=== PATIENT | male | born 1995 | race Asian ===

== ENCOUNTER 2017-02-20 04:06 | Emergency (ER) | payer BC, OTHER ==
[2017-02-20 04:37] VITALS: TEMP 98.2; BMI 24.7
--- NOTE | 2017-02-20 04:39 | PDOC ---
History of Present Illness - General History Source: Patient Exam Limitations: No Limitations - History of Present Illness Initial Comments: 02/20/17 04:46 The patient is a 21 year old male with no significant PMH who presents with vomiting and diarrhea beginning approximately 7 hours ago. The patient also reports crampy abdominal pain. He reports being unable to tolerate fluids since 10PM last night. He reports his last meal was at 2PM yesterday. The patient is vomiting upon presentation. The patient denies chest pain, shortness of breath, headache and dizziness. Denies fever, chills, and constipation. Denies dysuria, frequency, urgency and hematuria. Allergies: NKA Past surgical history: None reported. Social history: No reported cigarette, alcohol, or drug use. PCP: Dr. Dennis Short <Rohit Harrington - Last Filed: 02/20/17 04:46> - General History Source: Patient <Juan Ibrahim - Last Filed: 02/20/17 19:33> - General Chief Complaint: Nausea/Vomiting Stated Complaint: VOMITING,DIARRHEA Time Seen by Provider: 02/20/17 04:36 Past History <Rohit Harrington - Last Filed: 02/20/17 04:46> - Past Medical History COPD: No Thyroid Disease: No - Immunization History Immunization Up to Date: Yes - Suicide/Smoking/Psychosocial Hx Smoking History: Never smoked Have you smoked in the past 12 months: No Information on smoking cessation initiated: No Hx Alcohol Use: No Drug/Substance Use Hx: No Substance Use Type: None <Juan Ibrahim - Last Filed: 02/20/17 19:33> - Past Medical History Allergies/Adverse Reactions: Allergies Allergy/AdvReac Type Severity Reaction Status Date / Time No Known Allergies Allergy Verified 02/20/17 04:29 Home Medications: Ambulatory Orders NK [No Known Home Medication] 02/20/17 Ondansetron [Zofran -] 4 mg PO TID PRN #14 tablet 02/20/17 Review of Systems - Review of Systems Able to Perform ROS?: Yes Comments:: 02/20/17 04:46 CONSTITUTIONAL: Absent: fever, chills, diaphoresis, generalized weakness, malaise, loss of appetite HEENT: Absent: rhinorrhea, nasal congestion, throat pain, throat swelling, difficulty swallowing, mouth swelling, ear pain, eye pain, visual Changes CARDIOVASCULAR: Absent: chest pain, syncope, palpitations, irregular heart rate, lightheadedness , peripheral edema RESPIRATORY: Absent: cough, shortness of breath, dyspnea with exertion, orthopnea, wheezing, stridor, hemoptysis GASTROINTESTINAL: (+) Nausea. (+) Vomiting. (+) Diarrhea. (+) Crampy abdominal pain. Absent: abdominal distension, constipation, melena, hematochezia GENITOURINARY: Absent: dysuria, frequency, urgency, hesitancy, hematuria, flank pain, genital pain MUSCULOSKELETAL: Absent: myalgia, arthralgia, joint swelling SKIN: Absent: rash, itching, pallor HEMATOLOGIC/IMMUNOLOGIC: Absent: easy bleeding, easy bruising, lymphadenopathy, frequent infections ENDOCRINE: Absent: unexplained weight gain, unexplained weight loss, heat intolerance, cold intolerance NEUROLOGIC: Absent: headache, focal weakness or paresthesias, dizziness, unsteady gait, seizure, mental status changes, bladder or bowel incontinence PSYCHIATRIC: Absent: anxiety, depression, suicidal or homicidal ideation, hallucinations. <Rohit Harrington - Last Filed: 02/20/17 04:46> *Physical Exam - Vital Signs Last Vital Signs Temp Pulse Resp BP Pulse Ox 98.2 F 93 H 18 136/71 100 02/20/17 04:29 02/20/17 04:29 02/20/17 04:29 02/20/17 04:29 02/20/17 04:29 - Physical Exam Comments: 02/20/17 04:46 GENERAL: Well developed, well nourished. Awake and alert. No acute distress. HEENT: (+) Slightly dry mucosa. Normocephalic, atraumatic. PERRLA, EOMI. No conjunctival pallor. Sclera are non- icteric. Oropharynx is clear. NECK: Supple. Full ROM. No JVD. Carotid pulses 2+ and symmetric, without bruits. No thyromegaly. No lymphadenopathy. CARDIOVASCULAR: Regular rate and rhythm. No murmurs, rubs, or gallops. Distal pulses are 2+ and symmetric. PULMONARY: No evidence of respiratory distress. Lungs clear to auscultation bilaterally. No wheezing, rales or rhonchi. ABDOMINAL: (+) Slight abdominal tenderness. Soft. Non-distended. No rebound or guarding. No organomegaly. Normoactive bowel sounds. MUSCULOSKELETAL Normal range of motion at all joints. No bony deformities or tenderness. No CVA tenderness. EXTREMITIES: No cyanosis. No clubbing. No edema. No calf tenderness. SKIN: Warm and dry. Normal capillary refill. No rashes. No jaundice. NEUROLOGICAL: Alert, awake, appropriate. Cranial nerves 2-12 intact. No deficits to light touch and temperature in face, upper extremities and lower extremities. No motor deficits in the in face, upper extremities and lower extremities. Normoreflexic in the upper and lower extremities. Normal speech. Toes are down- going bilaterally. Gait is normal without ataxia. PSYCHIATRIC: Cooperative. Good eye contact. Appropriate mood and affect. <Rohit Harrington - Last Filed: 02/20/17 04:46> - Vital Signs Last Vital Signs Temp Pulse Resp BP Pulse Ox 98.2 F 93 H 18 136/71 100 02/20/17 04:29 02/20/17 04:29 02/20/17 04:29 02/20/17 04:29 02/20/17 04:29 <Juan Ibrahim - Last Filed: 02/20/17 19:33> ED Treatment Course - LABORATORY CBC & Chemistry Diagram: 02/20/17 05:16 02/20/17 05:16 <Juan Ibrahim - Last Filed: 02/20/17 19:33> Medical Decision Making - Medical Decision Making 02/20/17 19:33 my prescriptDr. Patrice: The scribe's documentation has been prepared under my direction and personally reviewed by me in its entirery. I confirm that the note above accurately reflects all work, treatment, procedures, and medical decision making performed by me. <Juan Ibrahim - Last Filed: 02/20/17 19:33> *DC/Admit/Observation/Transfer - Attestations Scribe Attestion: 02/20/17 04:46 Documentation prepared by Rohit Harrington, acting as medical equipment technician for Juan Ibrahim DO. <Rohit Harrington - Last Filed: 02/20/17 04:46> - Discharge Dispostion Admit: No <Juan Ibrahim - Last Filed: 02/20/17 19:33> Diagnosis at time of Disposition: Gastroenteritis - Discharge Dispostion Disposition: HOME Condition at time of disposition: Improved - Prescriptions Prescriptions: Ondansetron [Zofran -] 4 mg PO TID PRN #14 tablet PRN Reason: Nausea - Referrals Referrals: Dennis Short MD [Primary Care Provider] - - Patient Instructions Printed Discharge Instructions: DI for Diarrhea and Traveler's Diarrhea -- Adult Additional Instructions: Return to the emergency department immediately with ANY new, persistent or worsening symptoms including worsening abdominal pain, fevers, inability to tolerate oral intake, chest pain, shortness of breath or any other concerns. Stay well hydrated. You MUST call and follow up with your doctor tomorrow. Your emergency department visit is not complete without a followup with your doctor for reevaluation. Please make sure your doctor reviews the results of your emergency evaluation. Print Language: T[place]VALU[place] - Post Discharge Activity
[2017-02-20] MEDS ORDERED: SODIUM CHLORIDE 1,000 ML IV STA (04:40)
[2017-02-20] MEDS ORDERED: FAMOTIDINE 20 MG/50 ML IVPB 20 MG in PREMIX 50 IVPB ONE (04:40)
[2017-02-20] MEDS ORDERED: METOCLOPRAMIDE HCL INJECTION 10 MG/2 ML VIAL IVPUSH ONE (04:40)
[2017-02-20] MEDS ORDERED: METOCLOPRAMIDE HCL INJECTION 10 MG/2 ML VIAL ONE (05:00)
[2017-02-20] MEDS ORDERED: FAMOTIDINE 20 MG/50 ML IVPB 20 MG/50 ML MG IVPB ONE (05:01)
[2017-02-20 05:26] LABS: MEAN PLT VOLUME 8.5 fl (7.5-11.1); MONO # 0.5 # (3.8-10.2); NEUT # 9.7 # (42.8-82.8); WHITE BLOOD COUNT 10.6 K/mm3 (4.0-10.0)
[2017-02-20 05:31] LABS: LYMPH # 0.3 (8-40); MCH 29.1 pg (25.7-33.7); MCHC 33.4 g/dl (32.0-35.9); PLATELET COUNT 323 K/MM3 (134-434)
[2017-02-20 05:47] LABS: INR 1.11 (0.82-1.09); PROTHROMBIN TIME (PATIENT) 12.5 SEC (9.98-11.88)
[2017-02-20 05:56] LABS: ALBUMIN 4.3 g/dl (3.4-5.0); ALK PHOS 72 U/L (45-117); ANION GAP 12 (8-16); BILIRUBIN,TOTAL 0.6 mg/dL (0.2-1.0); CALCIUM 9.4 mg/dL (8.5-10.1); CO2 24 mmol/L (21-32); CREATININE 1.3 mg/dL (0.7-1.3); GLUCOSE,RANDOM 144 mg/dL (74-106); MAGNESIUM 1.9 mg/dL (1.8-2.4); SGOT/AST 11 U/L (15-37); SGPT/ALT 19 U/L (12-78); TOT PROT 7.9 g/dl (6.4-8.2)
[2017-02-20] MEDS ORDERED: SODIUM CHLORIDE 1,000 ML IV ONE (08:07)
--- NOTE | 2017-02-20 10:11 | PDOC ---
*Physical Exam - Vital Signs Last Vital Signs Temp Pulse Resp BP Pulse Ox 98.2 F 93 H 18 136/71 100 02/20/17 04:29 02/20/17 04:29 02/20/17 04:29 02/20/17 04:29 02/20/17 04:29 ED Treatment Course - LABORATORY CBC & Chemistry Diagram: 02/20/17 05:16 02/20/17 05:16 - ADDITIONAL ORDERS Additional order review: Laboratory Results 02/20/17 02/20/17 05:16 05:16 PT with INR 12.50 H INR 1.11 Sodium 141 Potassium 4.6 Chloride 105 Carbon Dioxide 24 Anion Gap 12 BUN 19 H Creatinine 1.3 Creat Clearance w eGFR > 60 Random Glucose 144 H Calcium 9.4 Magnesium 1.9 Total Bilirubin 0.6 AST 11 L ALT 19 Alkaline Phosphatase 72 Total Protein 7.9 Albumin 4.3 Lipase 307 02/20/17 05:16 RBC 5.66 H MCV 87.0 MCHC 33.4 RDW 13.0 MPV 8.5 Neutrophils % No Result Required. Lymphocytes % No Result Required. - Medications Given in the ED: ED Medications Discontinued Medications Generic Name Dose Route Start Last Admin Trade Name Freq PRN Reason Stop Dose Admin Sodium Chloride 1,000 mls @ 1,000 mls/hr 02/20/17 04:40 02/20/17 05:20 Normal Saline - IV 02/20/17 05:39 1,000 mls/hr ASDIR STA Administration Famotidine/Sodium Chloride 20 50 mls @ 100 mls/hr 02/20/17 04:40 02/20/17 05: 20 mg/ Miscellaneous IVPB 02/20/17 05:09 100 mls/hr ONCE ONE Administration Sodium Chloride 1,000 mls @ 1,000 mls/hr 02/20/17 08:07 02/20/17 08:12 Normal Saline - IV 02/20/17 09:06 1,000 mls/hr .Q1H ONE Administration Metoclopramide HCl 10 mg 02/20/17 04:40 02/20/17 05:20 Reglan Injection - IVPUSH 02/20/17 04:41 10 mg ONCE ONE Administration Medical Decision Making - Medical Decision Making 02/20/17 10:14 pt signed out to me from Dr. Whitman, pt with complaint of n/v/d and abd pain with RLQ tenderness pts labs reviewed CT noted for ilieus without other pathology, appendix not visualized but no secondary signs of appedicitis noted. abd soft nontender will dc with supportive care. suspect AGE. zofran, fluids by mouth at home PMD fu return precautions were disucssed Return to the emergency department immediately with ANY new, persistent or worsening symptoms. You MUST call and follow up with your doctor tomorrow for further evaluation of your symptoms. Results were discussed with you. Please make sure your doctor reviews the results of your emergency evaluation. If you had any xrays during your visit, it was read preliminarily by myself, a Radiologist will review it and if there are any additional findings we will call you. *DC/Admit/Observation/Transfer Diagnosis at time of Disposition: Gastroenteritis - Discharge Dispostion Disposition: HOME Condition at time of disposition: Improved Admit: No - Prescriptions Prescriptions: Ondansetron [Zofran -] 4 mg PO TID PRN #14 tablet PRN Reason: Nausea - Referrals Referrals: Dennis Short MD [Primary Care Provider] - - Patient Instructions Printed Discharge Instructions: DI for Diarrhea and Traveler's Diarrhea -- Adult Additional Instructions: Return to the emergency department immediately with ANY new, persistent or worsening symptoms including worsening abdominal pain, fevers, inability to tolerate oral intake, chest pain, shortness of breath or any other concerns. Stay well hydrated. You MUST call and follow up with your doctor tomorrow. Your emergency department visit is not complete without a followup with your doctor for reevaluation. Please make sure your doctor reviews the results of your emergency evaluation. Print Language: BULGARIAN - Post Discharge Activity
[2017-02-20 10:31] VITALS: BP 111/63; PULSE 88
[2017-02-20 11:03] LABS: ANISOCYTOSIS 3+; BAND % 39.4 %; HYPOCHROMIA 0; MACROCYTOSIS 0; METAMYELOCYTE 0 % (0-2); MICROCYTOSIS 3+; MYELOCYTE 0 % (0-2); PLATELET ESTIMATE NORMAL; POIKILOCYTOSIS 3+; POLYCHROMASIA 0; REACTIVE LYMPHOCYTES 0 % (0-80)
[2017-02-20 11:17] LABS: TOTAL CELLS COUNTED 100
== END 2017-02-20 10:32 | disposition home or self-care (01) ==
LOC: JER 04:06
PROC: 3E0337Z Introduction of Electrolytic and Water Balance Substance into Peripheral Vein, Percutaneous Approach (ICD-10-PCS; principal; 2017-02-20)
PROC: 3E033GC Introduction of Other Therapeutic Substance into Peripheral Vein, Percutaneous Approach (ICD-10-PCS; 2017-02-20)
PROC: 3E033GC Introduction of Other Therapeutic Substance into Peripheral Vein, Percutaneous Approach (ICD-10-PCS; 2017-02-20)
DX: K52.9 Noninfective gastroenteritis and colitis, unspecified (principal)
CPT/HCPCS: 36415; 74177-TC; 80053; 83690; 83735; 85025; 85610; 99284-25; Q9967